=== PATIENT | male | born 1980 | race Caucasian/White ===

== ENCOUNTER 2020-06-04 19:54 | Emergency (ER) | payer OTHER, SELFPAY ==
[2020-06-05 13:47] LABS: SARS-CoV-2 PCR by NAA DETECTED (NotDetected)
== END 2020-06-04 21:06 | disposition home or self-care (01) ==
LOC: CSHERS 19:54
DX: U07.1 COVID-19 (principal); F17.210 Nicotine dependence, cigarettes, uncomplicated
CPT/HCPCS: 71045; 87635; 93005; U0003; U0005

== ENCOUNTER 2020-06-15 15:10 | Emergency (ER) | payer OTHER | END 2020-06-15 16:18 | disposition left against medical advice (07) | LOC: CSHERS 15:10 | DX: Z53.21 Procedure and treatment not carried out due to patient leaving prior to being seen by health care provider (principal); F17.210 Nicotine dependence, cigarettes, uncomplicated ==

== ENCOUNTER 2021-09-21 16:28 | Emergency (ER) | payer OTHER, SELFPAY ==
[2021-09-21 19:34] LABS: #Basophils 0.1 10x3/uL (0.0-0.2); #Eosinphils 0.2 10x3/uL (0.0-0.5); #Neutrophils 3.6 10x3/uL (1.5-8.4); %Basophils 0.7 % (0.0-2.0); %Eosinophils 2.5 % (0.0-6.0); %Lymphocytes 40.3 % (18.0-47.0); %Monocytes 11.9 % (0.0-10.0); %Neutrophils 44.5 % (40.0-75.0); Hemoglobin 14.3 g/dL (13.5-17.5); Mean Corpuscular Hemoglobin 31.9 pg (27.0-33.0); Mean Corpuscular Volume 91.1 fl (81.2-95.1); Mean Platelet Volume 8.9 fl (7.4-10.4); Platelet Count 378 10x3/uL (150-450); RBC Distribution Width 12.3 % (11.5-14.5); Red Blood Cell (RBC) Count 4.48 10x6/uL (4.32-5.72); White Blood Cell (WBC) Count 8.1 10x3/uL (3.5-10.5)
[2021-09-21 19:47] LABS: ALT (SGPT) 22 U/L (8-55); AST (SGOT) 15 U/L (5-34); Albumin 4.3 g/dL (3.5-5.0); Alkaline Phosphatase 62 U/L (40-110); Anion Gap 12 mmol/L (10-20); BUN (Urea Nitrogen) 10 mg/dL (8.9-20.6); Bilirubin, Total 0.2 mg/dL (0.2-1.2); CK (CPK) 95 U/L (30-200); Calc. Creatinine Clearance 0 mL/min (70-130); Calcium 9.2 mg/dL (7.8-10.44); Carbon Dioxide 27 mmol/L (22-29); Chloride 105 mmol/L (98-107); Estimated GFR 110; Globulin 2.4 g/dL (2.4-3.5); Glucose 80 mg/dL (70-105); Potassium 3.8 mmol/L (3.5-5.1); Protein, Total 6.7 g/dL (6.0-8.3); Sodium 140 mmol/L (136-145)
== END 2021-09-21 20:27 | disposition home or self-care (01) ==
LOC: CSHERS 16:28
DX: R20.0 Anesthesia of skin (principal); F17.210 Nicotine dependence, cigarettes, uncomplicated
CPT/HCPCS: 36415; 80053; 82550; 84484; 85025; 93005

== ENCOUNTER 2021-11-27 12:51 | Emergency (ER) | payer SELFPAY ==
[2021-11-27] MEDS ORDERED: Ziprasidone 20 MG VIAL ONE (13:25)
[2021-11-27] MEDS ORDERED: Sterile Water 10 ML ONE (13:26)
[2021-11-27 13:29] LABS: Bilirubin Neg (Negative); Blood, Urine 25 (Negative); Clarity Clear (Clear); Glucose, Urine (Dipstick) Normal (Negative); Ketone, Urine Negative (Negative); Leukocyte Negative (Negative); Nitrite Negative (Negative); Protein, Urine (Dipstick) Negative (Neg-Trace); Urobilinogen Normal mg/dL (Less than 2)
[2021-11-27] MEDS ORDERED: Diazepam 10 MG/2 ML SYRINGE ONE (13:34)
[2021-11-27 13:39] LABS: #Basophils 0.1 10x3/uL (0.0-0.2); #Eosinphils 0.1 10x3/uL (0.0-0.5); %Basophils 0.8 % (0.0-2.0); %Eosinophils 1.4 % (0.0-6.0); %Lymphocytes 34.7 % (18.0-47.0); %Monocytes 12.9 % (0.0-10.0); %Neutrophils 49.9 % (40.0-75.0); Hemoglobin 14.3 g/dL (13.5-17.5); Mean Corpuscular HGB CONC 34.1 g/dL (32.0-36.0); Mean Corpuscular Hemoglobin 31.1 pg (27.0-33.0); Mean Corpuscular Volume 91.1 fl (81.2-95.1); Mean Platelet Volume 8.6 fl (7.4-10.4); Platelet Count 311 10x3/uL (150-450); RBC Distribution Width 12.1 % (11.5-14.5); White Blood Cell (WBC) Count 7.9 10x3/uL (3.5-10.5)
[2021-11-27 13:39] LABS: Amphetamine Detected (NotDetected); Barbiturates Screen Not Detected (NotDetected); Benzodiazepine Screen Not Detected (NotDetected); Cocaine Metabolite Screen Not Detected (NotDetected); Methadone Not Detected (NotDetected); Methamphetamine Detected (NotDetected); Opiate Screen Not Detected (NotDetected); Oxycodone Screen Not Detected (NotDetected); Phencyclidine (PCP) Not Detected (NotDetected); THC/Cannabinoid Screen Detected (NotDetected); Tricyclic Screen Not Detected (NotDetected)
[2021-11-27 13:46] LABS: Bacteria/HPF None Seen HPF (None Seen); RBC/HPF 0-3 HPF (0-3); Squamous Epithelial 0-3 HPF (0-3); WBC/HPF 0-3 HPF (0-3)
[2021-11-27 14:01] LABS: ALT (SGPT) 48 U/L (8-55); AST (SGOT) 72 U/L (5-34); Acetaminophen Less than 10.0 mcg/mL (10.0-30.0); Albumin 4.8 g/dL (3.5-5.0); Alcohol Less than 10 mg/dL (Less than 10); Alkaline Phosphatase 68 U/L (40-110); Anion Gap 17 mmol/L (10-20); BUN (Urea Nitrogen) 14 mg/dL (8.9-20.6); Bilirubin, Total 0.4 mg/dL (0.2-1.2); CK (CPK) 1889 U/L (30-200); Calc. Creatinine Clearance 0 mL/min (70-130); Calcium 9.8 mg/dL (7.8-10.44); Carbon Dioxide 23 mmol/L (22-29); Chloride 104 mmol/L (98-107); Estimated GFR 95; Globulin 2.5 g/dL (2.4-3.5); Glucose 91 mg/dL (70-105); Potassium 3.8 mmol/L (3.5-5.1); Protein, Total 7.3 g/dL (6.0-8.3); Salicylate Less than 8.0 mg/dL (15.0-30.0); Sodium 140 mmol/L (136-145)
[2021-11-27] MEDS ORDERED: Nicotine 14 MG PATCH ONE (20:32)
[2021-11-28] MEDS ORDERED: hydrOXYzine 25 MG TAB ONE (09:45)
== END 2021-11-27 13:38 | disposition home or self-care (01) ==
LOC: CSHERS 12:51
DX: M62.82 Rhabdomyolysis (principal); F19.10 Other psychoactive substance abuse, uncomplicated; F17.210 Nicotine dependence, cigarettes, uncomplicated
CPT/HCPCS: 36415; 80053; 80306; 80307; 81003; 81015; 82550; 85025; 96360; 96361; 96372; J3360; J3486

== ENCOUNTER 2023-04-30 13:20 | Emergency (ER) | payer SELFPAY | END 2023-04-30 15:06 | disposition home or self-care (01) | LOC: CSHERS 13:20 | DX: S60.221A Contusion of right hand, initial encounter (principal); Z87.891 Personal history of nicotine dependence; X58.XXXA Exposure to other specified factors, initial encounter; Y92.007 Garden or yard of unspecified non-institutional (private) residence as the place of occurrence of the external cause ==

== ENCOUNTER 2025-02-07 13:16 | Emergency (ER) | payer SELFPAY ==
[2025-02-07] MEDS ORDERED: Ketorolac Tromethamine 30 MG (1 mL) VIAL ONE (15:25)
[2025-02-07] MEDS ORDERED: HYDROcodone/Acetaminophen 5/325 mg Tablet ONE (15:25)
== END 2025-02-07 15:55 | disposition home or self-care (01) ==
LOC: CSHERS 13:16
DX: S92.354A Nondisplaced fracture of fifth metatarsal bone, right foot, initial encounter for closed fracture (principal); S90.31XA Contusion of right foot, initial encounter; F17.210 Nicotine dependence, cigarettes, uncomplicated; F17.290 Nicotine dependence, other tobacco product, uncomplicated; W11.XXXA Fall on and from ladder, initial encounter
CPT/HCPCS: 29515; 96372; J1885

== ENCOUNTER 2025-02-11 13:07 | Emergency (ER) | payer SELFPAY | END 2025-02-11 16:24 | disposition home or self-care (01) | LOC: CSHERS 13:07 | DX: M25.572 Pain in left ankle and joints of left foot (principal); F17.210 Nicotine dependence, cigarettes, uncomplicated; F17.290 Nicotine dependence, other tobacco product, uncomplicated; W11.XXXA Fall on and from ladder, initial encounter | CPT/HCPCS: 99283 ==